=== PATIENT | female | born 1985 | race Caucasian/White ===

== ENCOUNTER 2017-06-26 15:17 | Emergency (ER) | payer BC, MEDICAID, OTHER ==
[2017-06-26 15:46] VITALS: BMI 19.1
[2017-06-26] MEDS ORDERED: DiphenhydrAMINE 12.5 mg/5 ml LIQ UD (5 ml) PO STA (16:20)
--- NOTE | 2017-06-26 16:39 | C.PDOC ---
History Of Present Illness 31 yo female come in for evaluation of throat pain, neck glands pain, chest tightness gradually developed since yesterday, (+) greenish sputum. Otherwise, pt denies high fever, chills, headache, dizziness, vertigo, drooling, dyspnea, CP, SOB, wheezing, palpitation, plueritic pain, abd. pain, V/D, back pain, UTI sx. Pt denies hx of food or medication allergy, denies recent travel or known sick contact. Pt has no risk factors for DVT or PE. Ambulate to Ed for evaluation, not in any apparent distress. Time Seen by Provider: 06/26/17 15:50 Chief Complaint (Nursing): Cough, Cold, Congestion History Per: Patient Past Medical History Reviewed: Historical Data, Nursing Documentation, Vital Signs Vital Signs: Last Vital Signs Temp 98.3 F 06/26/17 16:07 Pulse 100 H 06/26/17 16:07 Resp 16 06/26/17 16:07 BP 105/70 06/26/17 16:07 Pulse Ox 98 06/26/17 16:52 - Medical History PMH: Asthma Surgical History: Back Surgery - [facility] Procedures INJECT/INFUSE NEC (04/18/14) Family History: States: Unknown Family Hx - Social History Hx Tobacco Use: No Hx Alcohol Use: Yes Hx Substance Use: No - Immunization History Hx Tetanus Toxoid Vaccination: No Hx Influenza Vaccination: No Hx Pneumococcal Vaccination: No Review Of Systems Except As Marked, All Systems Reviewed And Found Negative. Constitutional: Negative for: Fever, Chills ENT: Positive for: Nose Discharge, Nose Congestion, Throat Pain, Throat Swelling. Negative for: Ear Pain, Ear Discharge Cardiovascular: Positive for: Chest Pain. Negative for: Edema, Light Headedness Respiratory: Positive for: Cough, Sputum. Negative for: Shortness of Breath, SOB with Excertion, Pleuritic Pain, Wheezing Gastrointestinal: Negative for: Nausea, Vomiting, Abdominal Pain, Diarrhea Genitourinary: Negative for: Dysuria Musculoskeletal: Negative for: Neck Pain, Back Pain Skin: Negative for: Rash Neurological: Negative for: Altered Mental Status, Headache, Dizziness Physical Exam - Physical Exam Appears: Well, Non-toxic, No Acute Distress Skin: Normal Color, Warm, Dry, No Rash Eye(s): bilateral: PERRL Ear(s): Bilateral: Normal Nose: No Flaring, No Discharge Oral Mucosa: Moist, No Drooling Tongue: Normal Appearing Lips: Normal Appearing Throat: Erythema (mild), No Exudate, No Drooling Neck: Trachea Midline, Supple Lymphatic: Adenopathy (mild anterior cervical, sligtly tender, mobile. no edema , no erythema.) Cardiovascular: Rhythm Regular, No Murmur Respiratory: No Decreased Breath Sounds, No Accessory Muscle Use, No Stridor, No Wheezing Gastrointestinal/Abdominal: Soft, No Tenderness, No Distention, No Guarding Back: No CVA Tenderness Extremity: Normal ROM, No Deformity, No Swelling Neurological/Psych: Oriented x3, Normal Speech ED Course And Treatment ECG: Interpreted By Me, Viewed By Me ECG Interpretation: Normal Interpretation Of ECG: SR@92/min, NAD, no acute T wave or ST-T changes. O2 Sat by Pulse Oximetry: 98 Pulse Ox Interpretation: Normal - Radiology CXR: Interpreted by Me, Viewed By Me CXR Interpretation: Yes: No Acute Disease Progress Note: On re-evaluation, pt is afebrile, hemodynamicaly stable. non- toxic. Tolerate Po well in ED. PulseOx 98% RA Neck: Supple, (-) meningeal sign. Lungs: CTA B/L, BS equal B/L. Abd: benign, (-) guarding, (-) rebound. Neurologicaly intact. CXR- no acute abnormalities noted. EKG- normal study. FSBS 106. rapid strep (-). Pt has clinical findings c/w pharyngitis r/o seasonal allergy. Pt advised. ref. to f/u with PMD in 2-3 days for re-eval. return to ED if any worsening or new changes. Disposition Counseled Patient/Family Regarding: Studies Performed, Diagnosis, Need For Followup, Rx Given - Disposition Referrals: [facility] [Outside] Disposition: HOME/ ROUTINE Disposition Time: 16:50 Condition: STABLE Additional Instructions: Encourage fluids Take medication as prescribed Follow up with PMD in 2-3 days for re-evaluation. return to ED at any time if any worsening or new changes. Prescriptions: Amoxicillin/Clavulanate [Augmentin 875 MG-125 MG] 1 tab PO BID #14 tab DiphenhydrAMINE [Benadryl] 25 mg PO BID #10 cap Prednisone [Deltasone] 20 mg PO DAILY #3 tablet Instructions: Seasonal Allergies in Adults, Viral Pharyngitis (DC) Forms: [id number] ([place]ik) - Clinical Impression Clinical Impression: Viral disease, Seasonal allergies
[2017-06-26] MEDS ORDERED: Amoxicillin-Clav 875-125 mg Tab PO STA (16:47)
[2017-06-26] MEDS ORDERED: Amoxicillin-Clav 875-125 mg Tab PO ONE (17:55)
[2017-06-26 17:59] VITALS: BP 107/68; PULSE 90; RESP 18; TEMP 98.5; O2SAT 99
--- NOTE | 2017-06-26 18:51 | RAD ---
HISTORY: Dyspnea and chest pain COMPARISON: 03/17/2012. TECHNIQUE: Chest PA and lateral FINDINGS: LUNGS: No active pulmonary disease. PLEURA: No significant pleural effusion identified. No pneumothorax apparent. CARDIOVASCULAR: Normal. OSSEOUS STRUCTURES: No significant abnormalities. VISUALIZED UPPER ABDOMEN: Normal. OTHER FINDINGS: None. IMPRESSION: No active disease. No significant interval change compared to the prior examination(s). Concordant results with the preliminary interpretation rendered by the emergency department physician procedure.
--- NOTE | 2017-06-27 12:07 | CARD ---
APPROVED REPORT EKG Measurement Heart [id number] <Conclusion> Normal sinus rhythm Normal ECG
== END 2017-06-26 17:59 | disposition home or self-care (01) ==
LOC: C.ER 15:17
DX: B34.9 Viral infection, unspecified (principal); J30.2 Other seasonal allergic rhinitis